=== PATIENT | female | born 1945 | race Caucasian/White ===

== ENCOUNTER 2016-12-05 13:08 | Inpatient (IN) | payer MEDICARE, OTHER ==
[~2016-12-05] VITALS: Ht 157.5 cm; Wt 74.7 kg
[~2016-12-05 13:08] MED LIST: ATEN-60 OR; CITA10TA59 OR; ESTR0.5T8 OR; LORA2TAB10 OR; NITR25CA OR; NOR5T PO; ROSU5TAB5; [UNRECOGNIZED DRUG - OTHER]
[2016-12-05] MEDS ORDERED: SODIUM CHLORIDE 0.9% 250 ML IV ONE (15:04)
[2016-12-05] MEDS ORDERED: MORPHINE SULFATE 4 MG/ML SYRG IV ONE (15:15)
[2016-12-05] MEDS ORDERED: ONDANSETRON HCL 4 MG/2 ML VIAL IV ONE (15:15)
[2016-12-05 15:30] LABS: Basophils # (auto) 0 uL; Basophils % (auto) 0.2 % (0.0-2.0); Eosinophils # (auto) 0 uL; Eosinophils % (auto) 0.2 % (0.0-7.0); Hematocrit 38.2 % (36.0-46.0); Hemoglobin 12.5 g/dL (12.2-16.2); Lymphocytes # (auto) 1.4 uL; Lymphocytes % (auto) 12.8 % (10.0-50.0); Mean Corpuscular Hemoglobin 31.4 pg (28.0-32.0); Mean Corpuscular Hgb Conc. 32.8 g/dL (32.0-36.0); Mean Corpuscular Volume 95.7 fL (80.0-100.0); Mean Platelet Volume 9.2 fL (7.4-10.4); Monocytes # (auto) 0.6 uL; Monocytes % (auto) 4.9 % (0.0-12.0); Neutrophils # (auto) 9.1 uL; Neutrophils % (auto) 81.9 % (37.0-80.0); Platelet Count (auto) 259 10^3/uL (140-450); Red Cell Distribution Width 12.3 % (11.6-16.0); White Blood Cell 11.2 10^3/uL (4.4-10.8)
[2016-12-05] MEDS ORDERED: NITROGLYCERIN 0.4 MG SL TAB SL PRN (15:30)
[2016-12-05 15:56] LABS: Albumin 4.2 g/dL (3.4-5.0); Bilirubin, Total 1.5 mg/dL (0.2-1.0); Calcium 9.3 mg/dL (8.5-10.1); Magnesium 2.2 mg/dL (1.6-2.6); Potassium 3.7 mmol/L (3.5-5.1); Total Protein 6.9 g/dL (6.4-8.2)
[2016-12-05 15:57] LABS: INR 1.11 (0.9-1.15); Partial Thromboplastin Time 25.2 sec (22.64-33.71); Prothrombin Time 11.4 sec (9.37-12.3)
[2016-12-05 18:42] VITALS: BP 124/80
[2016-12-05] MEDS ORDERED: HYDROcodone-ACET 5/325MG TAB PO PRN (19:15)
[2016-12-05] MEDS: MORPHINE SULF INJ 2 MG/ML SYRINGE 1ML IV PRN ×2 (19:29→20:37)
[2016-12-05] MEDS: SODIUM CHLORIDE 0.9% 1,000 ML IV SCH (19:40)
[2016-12-05] MEDS ORDERED: ONDANSETRON HCL 4 MG/2 ML VIAL IV PRN (19:45)
[2016-12-05] MEDS ORDERED: TEMAZEPAM 15 MG CAP PO PRN (21:00)
[2016-12-05] MEDS ORDERED: lamoTRIgine 100 MG TAB PO PRN (21:00)
[2016-12-05] MEDS ORDERED: PROMETHAZINE HCL 25 MG/ML 1ML IV PRN (21:00)
[2016-12-05] MEDS: EYE OP SCH (21:52)
[2016-12-05] MEDS: CYCLOSPORINE 0.05% OP SCH (21:52)
[2016-12-05] MEDS: ROSUVASTATIN CALCIUM 5 MG PO SCH (21:53)
[2016-12-05 22:00] VITALS: BP 124/80
[2016-12-06] MEDS: MORPHINE SULF INJ 2 MG/ML SYRINGE 1ML IV PRN ×2 (00:21→04:43)
[2016-12-06] MEDS: SODIUM CHLORIDE 0.9% 1,000 ML IV SCH ×2 (00:21→14:12)
[2016-12-06 01:11] LABS: Urine Bilirubin Negative (Negative); Urine Blood 1+ /uL (Negative); Urine Color Yellow (Yellow); Urine Glucose Normal (Normal); Urine Ketone 4+ (Negative); Urine Nitrite Negative (Negative); Urine RBC 1 /hpf (0 - 4); Urine Urobilinogen Normal (Negative)
[2016-12-06 05:00] VITALS: BP 109/56
[2016-12-06 06:34] LABS: Albumin 3.2 g/dL (3.4-5.0); Bilirubin, Total 1.5 mg/dL (0.2-1.0); Calcium 8.2 mg/dL (8.5-10.1); Total Protein 5.6 g/dL (6.4-8.2)
[2016-12-06] MEDS ORDERED: NEOMYCIN-BACITRACIN-POLYM 15GM TOP OINT TOP ONE (07:35)
[2016-12-06] MEDS ORDERED: BUPIVACAINE 0.25% INJ 50ML VIAL ONE (07:35)
[2016-12-06] MEDS ORDERED: LIDOCAINE 1% HCL (LOCAL ANESTH.) INJ 20ML MDV ONE (07:35)
[2016-12-06] MEDS ORDERED: METOCLOPRAMIDE HCL 5MG/ml INJ 2ml VIAL ONE (07:58)
[2016-12-06] MEDS ORDERED: ONDANSETRON HCL 4 MG/2 ML VIAL ONE ×2 (07:58→08:44)
[2016-12-06] MEDS ORDERED: LIDOCAINE HCL 2 %PF INJ 10ML AMP IJ ONE (07:58)
[2016-12-06] MEDS ORDERED: ceFAZolin 1GM/50ML D5W 100 ML IV ONE (07:58)
[2016-12-06] MEDS ORDERED: MIDAZOLAM HCL 1MG/1ML-2 ML VIAL ONE (07:58)
[2016-12-06] MEDS ORDERED: DEXAMETHASONE SOD PHOS 10MG/1ML VIAL INJ ONE (07:58)
[2016-12-06] MEDS ORDERED: PROPOFOL 10 MG/ML 20 ML IV ONE ×2 (07:59→09:12)
[2016-12-06 08:00] VITALS: BP 102/55
[2016-12-06] MEDS ORDERED: fentaNYL CITRATE 100 MCG/2 ML VL ONE (08:00)
[2016-12-06] MEDS ORDERED: MORPHINE SULF(PF) 0.5MG/ML 10ML VIAL ONE (08:00)
[2016-12-06] MEDS ORDERED: ePHEDrine SULFATE 50 MG/ML AMP ONE (08:26)
[2016-12-06] MEDS ORDERED: diphenhdrAMINE HCL 50 MG/1 ML VL IV PRN (10:00)
[2016-12-06] MEDS ORDERED: ePHEDrine SULFATE 50 MG/ML AMP IV PRN (10:00)
[2016-12-06] MEDS ORDERED: MIDAZOLAM HCL 1MG/1ML-2 ML VIAL IV PRN (10:00)
[2016-12-06] MEDS ORDERED: PROMETHAZINE HCL 25 MG/ML 1ML IM ONE (10:00)
[2016-12-06] MEDS ORDERED: LABETALOL HCL 5 MG/ML 4ML SYRINGE IV PRN (10:00)
[2016-12-06] MEDS ORDERED: METOCLOPRAMIDE HCL 5MG/ml INJ 2ml VIAL IV ONE (10:00)
[2016-12-06] MEDS ORDERED: KETOROLAC TROMETH 30 MG/ML 1ML VIAL IV PRN (10:00)
[2016-12-06] MEDS ORDERED: HYDROmorphone HCL 2 MG/ML VL IV PRN ×2 (10:00)
[2016-12-06] MEDS ORDERED: KETOROLAC TROMETH 30 MG/ML 1ML VIAL IV ONE (10:00)
[2016-12-06] MEDS ORDERED: NALOXONE HCL 0.4 MG/ML VIAL IV PRN ×2 (10:00)
[2016-12-06] MEDS ORDERED: hydrALAZINE HCL 20 MG/ML VL IV PRN (10:00)
[2016-12-06] MEDS: EYE OP SCH ×2 (10:00→22:00)
[2016-12-06] MEDS ORDERED: ONDANSETRON HCL 4 MG/2 ML VIAL IV ONE (10:00)
[2016-12-06] MEDS ORDERED: ATENOLOL 25 MG TAB PO SCH (10:00)
[2016-12-06] MEDS ORDERED: DEXAMETHASONE SOD PHOS 10MG/1ML VIAL INJ IV PRN (10:00)
[2016-12-06] MEDS: CYCLOSPORINE 0.05% OP SCH ×2 (10:00→22:00)
[2016-12-06] MEDS: ONDANSETRON HCL 4 MG/2 ML VIAL IV PRN ×3 (12:06→21:43)
[2016-12-06] MEDS: PANTOPRAZOLE 40 MG TAB PO SCH (12:07)
[2016-12-06] MEDS: CITALOPRAM HYDROBR 20 MG TAB PO SCH (12:07)
[2016-12-06 12:30] VITALS: BP 105/51
[2016-12-06] MEDS: ceFAZolin 1GM/50ML D5W 50 ML IV SCH ×2 (14:06→19:44)
[2016-12-06 17:00] VITALS: BP 103/55
[2016-12-06] MEDS: LORazepam 0.5 MG TAB PO PRN (19:43)
[2016-12-06 21:04] VITALS: BP 101/51
[2016-12-06] MEDS: ACYCLOVIR 400 MG TAB PO SCH (21:43)
[2016-12-06] MEDS: BIMATOPROST PO SCH (22:00)
[2016-12-06] MEDS: ROSUVASTATIN CALCIUM 5 MG PO SCH (22:00)
[2016-12-07] MEDS: ceFAZolin 1GM/50ML D5W 50 ML IV SCH ×4 (01:55→20:20)
[2016-12-07 05:00] VITALS: BP 98/52
[2016-12-07] MEDS: ACYCLOVIR 400 MG TAB PO SCH ×3 (06:15→20:54)
[2016-12-07] MEDS: MORPHINE SULF INJ 2 MG/ML SYRINGE 1ML IV PRN ×2 (08:34→20:09)
[2016-12-07 09:00] VITALS: BP 101/48
[2016-12-07] MEDS: ENOXAPARIN SOD 40 MG/0.4 ML SYRINGE SC SCH (09:56)
[2016-12-07] MEDS: PANTOPRAZOLE 40 MG TAB PO SCH (09:56)
[2016-12-07] MEDS: CITALOPRAM HYDROBR 20 MG TAB PO SCH (09:56)
[2016-12-07] MEDS: CYCLOSPORINE 0.05% OP SCH ×2 (10:00→20:59)
[2016-12-07] MEDS: EYE OP SCH ×2 (10:00→20:59)
[2016-12-07] MEDS: traMADol HCL 50 MG TAB PO PRN ×2 (10:03→16:05)
[2016-12-07 13:00] VITALS: BP 105/50
[2016-12-07 17:00] VITALS: BP 110/59
[2016-12-07] MEDS: ONDANSETRON HCL 4 MG/2 ML VIAL IV PRN (20:10)
[2016-12-07] MEDS: LORazepam 0.5 MG TAB PO PRN (20:54)
[2016-12-07] MEDS: BIMATOPROST PO SCH (20:55)
[2016-12-07] MEDS: ROSUVASTATIN CALCIUM 5 MG PO SCH (21:00)
[2016-12-07 22:00] VITALS: BP 111/56
[2016-12-08] MEDS: ceFAZolin 1GM/50ML D5W 50 ML IV SCH ×2 (01:57→07:45)
[2016-12-08] MEDS: MORPHINE SULF INJ 2 MG/ML SYRINGE 1ML IV PRN ×3 (04:39→21:01)
[2016-12-08] MEDS: ONDANSETRON HCL 4 MG/2 ML VIAL IV PRN (04:39)
[2016-12-08 05:00] VITALS: BP 98/48
[2016-12-08] MEDS: ACYCLOVIR 400 MG TAB PO SCH ×3 (05:21→21:12)
[2016-12-08 05:37] LABS: Basophils # (auto) 0 uL; Basophils % (auto) 0.2 % (0.0-2.0); Eosinophils # (auto) 0 uL; Eosinophils % (auto) 0.1 % (0.0-7.0); Hematocrit 27.4 % (36.0-46.0); Hemoglobin 8.7 g/dL (12.2-16.2); Lymphocytes # (auto) 1.5 uL; Lymphocytes % (auto) 13.3 % (10.0-50.0); Mean Corpuscular Hemoglobin 31.1 pg (28.0-32.0); Mean Corpuscular Hgb Conc. 31.9 g/dL (32.0-36.0); Mean Corpuscular Volume 97.6 fL (80.0-100.0); Monocytes # (auto) 0.8 uL; Monocytes % (auto) 7.6 % (0.0-12.0); Neutrophils # (auto) 8.7 uL; Neutrophils % (auto) 78.8 % (37.0-80.0); Platelet Count (auto) 176 10^3/uL (140-450); Red Cell Distribution Width 12.4 % (11.6-16.0)
[2016-12-08 09:00] VITALS: BP 93/50
[2016-12-08] MEDS: ENOXAPARIN SOD 40 MG/0.4 ML SYRINGE SC SCH (09:39)
[2016-12-08] MEDS: CITALOPRAM HYDROBR 20 MG TAB PO SCH (09:39)
[2016-12-08] MEDS: PANTOPRAZOLE 40 MG TAB PO SCH (09:39)
[2016-12-08] MEDS: CYCLOSPORINE 0.05% OP SCH ×2 (10:00→22:00)
[2016-12-08] MEDS: EYE OP SCH ×2 (10:00→22:00)
[2016-12-08] MEDS: LACTULOSE 20Gm/30ML SOLN PO PRN (12:17)
[2016-12-08] MEDS: traMADol HCL 50 MG TAB PO PRN ×2 (12:23→18:29)
[2016-12-08 13:00] VITALS: BP 106/64
[2016-12-08 17:07] VITALS: BP 122/66
[2016-12-08] MEDS: LORazepam 0.5 MG TAB PO PRN ×2 (21:01→21:12)
[2016-12-08 22:00] VITALS: BP 116/65
[2016-12-08] MEDS: BIMATOPROST PO SCH (22:18)
[2016-12-08] MEDS: ROSUVASTATIN CALCIUM 5 MG PO SCH (22:19)
[2016-12-09 05:00] VITALS: BP 116/66
[2016-12-09] MEDS: ACYCLOVIR 400 MG TAB PO SCH ×3 (05:16→21:51)
[2016-12-09 06:41] LABS: INR 1.05 (0.9-1.15); Prothrombin Time 10.8 sec (9.37-12.3)
[2016-12-09 06:57] LABS: Calcium 7.9 mg/dL (8.5-10.1); Magnesium 2.1 mg/dL (1.6-2.6); Potassium 3.4 mmol/L (3.5-5.1)
[2016-12-09 06:59] LABS: BUN/Creatinine Ratio 12.3
[2016-12-09 07:04] LABS: Basophils # (auto) 0 uL; Basophils % (auto) 0.3 % (0.0-2.0); DEFINITIVE VIEW TRANSMISSION; Eosinophils # (auto) 0.1 uL; Eosinophils % (auto) 1.4 % (0.0-7.0); Hematocrit 25.1 % (36.0-46.0); Hemoglobin 8.3 g/dL (12.2-16.2); Lymphocytes % (auto) 25.1 % (10.0-50.0); Mean Corpuscular Hemoglobin 32.1 pg (28.0-32.0); Mean Corpuscular Hgb Conc. 33.2 g/dL (32.0-36.0); Mean Corpuscular Volume 96.8 fL (80.0-100.0); Mean Platelet Volume 9.8 fL (7.4-10.4); Monocytes # (auto) 0.7 uL; Monocytes % (auto) 8.3 % (0.0-12.0); Neutrophils # (auto) 5.3 uL; Neutrophils % (auto) 64.9 % (37.0-80.0); Platelet Count (auto) 180 10^3/uL (140-450); Red Cell Distribution Width 12.5 % (11.6-16.0); White Blood Cell 8.1 10^3/uL (4.4-10.8)
[2016-12-09] MEDS: LACTULOSE 20Gm/30ML SOLN PO PRN (08:48)
[2016-12-09] MEDS: PANTOPRAZOLE 40 MG TAB PO SCH (09:34)
[2016-12-09] MEDS: CITALOPRAM HYDROBR 20 MG TAB PO SCH (09:34)
[2016-12-09] MEDS: EYE OP SCH ×2 (09:35→21:50)
[2016-12-09] MEDS: ENOXAPARIN SOD 40 MG/0.4 ML SYRINGE SC SCH (09:35)
[2016-12-09] MEDS: CYCLOSPORINE 0.05% OP SCH ×2 (09:35→21:50)
[2016-12-09 09:36] VITALS: BP 100/55
[2016-12-09 12:48] VITALS: BP 117/64
[2016-12-09 13:13] VITALS: BP 117/64
[2016-12-09] MEDS: traMADol HCL 50 MG TAB PO PRN (13:50)
[2016-12-09 17:00] VITALS: BP 114/61
[2016-12-09] MEDS: MORPHINE SULF INJ 2 MG/ML SYRINGE 1ML IV PRN ×2 (17:48→21:52)
[2016-12-09 21:34] VITALS: BP 108/57
[2016-12-09] MEDS: BIMATOPROST PO SCH (21:51)
[2016-12-09] MEDS: ROSUVASTATIN CALCIUM 5 MG PO SCH (21:51)
[2016-12-09] MEDS: LORazepam 0.5 MG TAB PO PRN (22:08)
[2016-12-10 04:30] VITALS: BP 125/62
[2016-12-10] MEDS: ACYCLOVIR 400 MG TAB PO SCH ×3 (05:42→22:08)
[2016-12-10 06:47] LABS: Hematocrit 26.4 % (36.0-46.0); Hemoglobin 8.8 g/dL (12.2-16.2)
[2016-12-10] MEDS: EYE OP SCH ×2 (10:00→22:00)
[2016-12-10] MEDS: CYCLOSPORINE 0.05% OP SCH ×2 (10:00→22:00)
[2016-12-10 10:11] VITALS: BP 115/64
[2016-12-10] MEDS: PANTOPRAZOLE 40 MG TAB PO SCH (11:56)
[2016-12-10] MEDS: ENOXAPARIN SOD 40 MG/0.4 ML SYRINGE SC SCH (11:56)
[2016-12-10] MEDS: CITALOPRAM HYDROBR 20 MG TAB PO SCH (11:56)
[2016-12-10 14:01] VITALS: BP 122/68
[2016-12-10] MEDS ORDERED: HYDROcodone-ACET 5/325MG TAB PO PRN (16:15)
[2016-12-10] MEDS: ACETAMINOPHEN 500 MG TAB PO PRN (16:40)
[2016-12-10 17:04] VITALS: BP 122/71
[2016-12-10 22:00] VITALS: BP 118/66
[2016-12-10] MEDS: ROSUVASTATIN CALCIUM 5 MG PO SCH (22:00)
[2016-12-10] MEDS: BIMATOPROST PO SCH (22:07)
[2016-12-10] MEDS: LORazepam 0.5 MG TAB PO PRN (22:08)
[2016-12-11 04:59] VITALS: BP 128/70
[2016-12-11 05:34] LABS: Hematocrit 27.4 % (36.0-46.0); Hemoglobin 9.1 g/dL (12.2-16.2)
[2016-12-11] MEDS: ACYCLOVIR 400 MG TAB PO SCH ×2 (05:50→13:57)
[2016-12-11 06:28] LABS: BUN/Creatinine Ratio 10.6; Calcium 8.3 mg/dL (8.5-10.1); Potassium 3.2 mmol/L (3.5-5.1)
[2016-12-11] MEDS: ACETAMINOPHEN 500 MG TAB PO PRN (08:42)
[2016-12-11 09:00] VITALS: BP 124/68
[2016-12-11] MEDS: EYE OP SCH (10:00)
[2016-12-11] MEDS: CYCLOSPORINE 0.05% OP SCH (10:00)
[2016-12-11] MEDS: PANTOPRAZOLE 40 MG TAB PO SCH (10:55)
[2016-12-11] MEDS: CITALOPRAM HYDROBR 20 MG TAB PO SCH (10:55)
[2016-12-11] MEDS: ENOXAPARIN SOD 40 MG/0.4 ML SYRINGE SC SCH (10:56)
[2016-12-11] MEDS: traMADol HCL 50 MG TAB PO PRN (11:28)
[2016-12-11] MEDS ORDERED: POTASSIUM CHL 20 Meq TABLET PO ONE (12:45)
[2016-12-11 13:00] VITALS: BP 136/76
[2016-12-11 17:00] VITALS: BP 112/71
== END 2016-12-11 16:50 | disposition home or self-care (01) | DRG 493 ==
LOC: EDBD 13:08 → ER 13:21 → TELE 13:22 → EDUNIT# 13:22 → TELE-WESTW 18:02
PROVIDERS: ADMIT Internal Medicine; ATTEND Family Medicine
PROC: 0QSH04Z Reposition Left Tibia with Internal Fixation Device, Open Approach (ICD-10-PCS; principal; 2016-12-05)
DX: S82.142A Displaced bicondylar fracture of left tibia, initial encounter for closed fracture (principal); M80.062A Age-related osteoporosis with current pathological fracture, left lower leg, initial encounter for fracture; S82.852A Displaced trimalleolar fracture of left lower leg, initial encounter for closed fracture; E78.5 Hyperlipidemia, unspecified; F32.9 Major depressive disorder, single episode, unspecified; F41.9 Anxiety disorder, unspecified; I34.1 Nonrheumatic mitral (valve) prolapse; W19.XXXA Unspecified fall, initial encounter; Z82.0 Family history of epilepsy and other diseases of the nervous system; Z82.49 Family history of ischemic heart disease and other diseases of the circulatory system; Z88.5 Allergy status to narcotic agent; Z79.899 Other long term (current) drug therapy; Z80.9 Family history of malignant neoplasm, unspecified; Z98.51 Tubal ligation status; Y93.89 Activity, other specified; Y92.89 Other specified places as the place of occurrence of the external cause; Z90.710 Acquired absence of both cervix and uterus; Z87.440 Personal history of urinary (tract) infections; Z98.890 Other specified postprocedural states
CPT/HCPCS: 36415; 71010; 73560; 73600; 73700; 74176; 76001; 80048; 80053; 81001; 83690; 83735; 84132; 85014; 85018; 85025; 85049; 85610; 85730; 87081; 93005; 93306; 96361; 96374; 96375; 97110; 97116; 97530; C1713; J0690; J1100; J2001; J2250; J2405; J2704; J3490

== ENCOUNTER → 2017-01-27 | Outpatient (CLI) | payer MEDICARE, OTHER | END | disposition home or self-care (01) | LOC: LAB 12:34 | PROVIDERS: ATTEND Internal Medicine | DX: R30.0 Dysuria (principal) | CPT/HCPCS: 87086 ==

== ENCOUNTER 2017-03-04 18:03 | Emergency (ER) | payer MEDICARE, OTHER ==
[~2017-03-04] VITALS: Ht 157.5 cm; Wt 55.3 kg
[~2017-03-04 18:03] MED LIST changes: +BIMA0.01 EACHEYE; +CYCL0.05 EACHEYE; +DRON2.5C PO; -ESTR0.5T8 OR; +MULT1TAB95 PO; -NITR25CA OR; +PANT40TA2 PO; +SUC1LQ PO
[2017-03-04 22:09] LABS: Urine Bilirubin Negative (Negative); Urine Color Yellow (Yellow); Urine Glucose Normal (Normal); Urine Mucus FEW (None Seen); Urine Nitrite Negative (Negative); Urine RBC 1 /hpf (0 - 4); Urine Squamous Epithelial Cell FEW /hpf (<5); Urine Urobilinogen Normal (Negative); Urine pH 5.5 (5.0-8.0)
[2017-03-04 22:23] LABS: Urine Blood 1+ /uL (Negative); Urine Ketone 2+ (Negative)
[2017-03-05 01:13] LABS: Albumin 3.8 g/dL (3.4-5.0); BUN/Creatinine Ratio 8.1; Potassium 3.9 mmol/L (3.5-5.1)
[2017-03-05 01:16] LABS: Bilirubin, Total 0.5 mg/dL (0.2-1.0); Total Protein 6.6 g/dL (6.4-8.2)
[2017-03-05 01:20] LABS: Basophils # (auto) 0 uL; Basophils % (auto) 0.4 % (0.0-2.0); Eosinophils # (auto) 0.1 uL; Eosinophils % (auto) 1.1 % (0.0-7.0); Hematocrit 36.7 % (36.0-46.0); Lymphocytes # (auto) 2.3 uL; Lymphocytes % (auto) 30.7 % (10.0-50.0); Mean Corpuscular Hemoglobin 31.3 pg (28.0-32.0); Mean Corpuscular Hgb Conc. 32.7 g/dL (32.0-36.0); Mean Corpuscular Volume 95.7 fL (80.0-100.0); Mean Platelet Volume 10.7 fL (7.4-10.4); Monocytes # (auto) 0.6 uL; Monocytes % (auto) 8.2 % (0.0-12.0); Neutrophils # (auto) 4.4 uL; Neutrophils % (auto) 59.6 % (37.0-80.0); Platelet Count (auto) 258 10^3/uL (140-450); Red Cell Distribution Width 14.4 % (11.6-16.0); White Blood Cell 7.4 10^3/uL (4.4-10.8)
[2017-03-05 02:29] VITALS: BP 129/69
== END 2017-03-05 02:42 | disposition home or self-care (01) ==
LOC: ER 18:03
DX: N39.0 Urinary tract infection, site not specified (principal); Z88.6 Allergy status to analgesic agent; Z88.8 Allergy status to other drugs, medicaments and biological substances; E78.5 Hyperlipidemia, unspecified; Z87.440 Personal history of urinary (tract) infections; Z90.710 Acquired absence of both cervix and uterus; Z90.49 Acquired absence of other specified parts of digestive tract; Z98.51 Tubal ligation status
CPT/HCPCS: 36415; 80053; 81001; 85025

== ENCOUNTER 2017-03-06 19:25 | Emergency (ER) | payer MEDICARE, OTHER ==
[~2017-03-06] VITALS: Ht 157.5 cm; Wt 55.3 kg
[2017-03-07 03:25] VITALS: BP 148/66
[2017-03-07 04:17] LABS: Basophils # (auto) 0.1 uL; Basophils % (auto) 0.7 % (0.0-2.0); Eosinophils # (auto) 0.1 uL; Eosinophils % (auto) 1.6 % (0.0-7.0); Hematocrit 38.6 % (36.0-46.0); Hemoglobin 12.8 g/dL (12.2-16.2); Lymphocytes % (auto) 25.5 % (10.0-50.0); Mean Corpuscular Hemoglobin 31.3 pg (28.0-32.0); Mean Corpuscular Hgb Conc. 33.1 g/dL (32.0-36.0); Mean Corpuscular Volume 94.6 fL (80.0-100.0); Mean Platelet Volume 10.1 fL (7.4-10.4); Monocytes # (auto) 0.6 uL; Neutrophils # (auto) 5.2 uL; Neutrophils % (auto) 65.2 % (37.0-80.0); Platelet Count (auto) 278 10^3/uL (140-450); Red Cell Distribution Width 14.3 % (11.6-16.0); White Blood Cell 7.9 10^3/uL (4.4-10.8)
[2017-03-07 04:32] LABS: Albumin 4.2 g/dL (3.4-5.0); BUN/Creatinine Ratio 6.8; Calcium 8.9 mg/dL (8.5-10.1); Potassium 3.2 mmol/L (3.5-5.1)
[2017-03-07 04:35] LABS: Bilirubin, Total 0.5 mg/dL (0.2-1.0); Total Protein 7.1 g/dL (6.4-8.2)
[2017-03-07 05:09] LABS: Urine Bilirubin Negative (Negative); Urine Blood TRACE /uL (Negative); Urine Color Yellow (Yellow); Urine Glucose Normal (Normal); Urine Mucus FEW (None Seen); Urine Nitrite Negative (Negative); Urine RBC 11 /hpf (0 - 4); Urine Squamous Epithelial Cell FEW /hpf (<5); Urine Urobilinogen Normal (Negative); Urine pH 5.5 (5.0-8.0)
[2017-03-07 05:11] LABS: Urine Ketone 2+ (Negative)
== END 2017-03-07 05:58 | disposition home or self-care (01) ==
LOC: ER 19:29
DX: R39.198 Other difficulties with micturition (principal); E78.5 Hyperlipidemia, unspecified; Z90.710 Acquired absence of both cervix and uterus; Z88.6 Allergy status to analgesic agent; Z88.8 Allergy status to other drugs, medicaments and biological substances
CPT/HCPCS: 36415; 80053; 81001; 85025

== ENCOUNTER → 2017-03-12 | Outpatient (CLI) | payer MEDICARE, OTHER | END | disposition home or self-care (01) | LOC: LAB 09:37 | PROVIDERS: ATTEND Internal Medicine | DX: R63.4 Abnormal weight loss (principal); E03.9 Hypothyroidism, unspecified; E11.9 Type 2 diabetes mellitus without complications | CPT/HCPCS: 36415; 82306; 83036; 84132; 84439; 84443 ==

== ENCOUNTER → 2017-03-16 | Outpatient (CLI) | payer MEDICARE, OTHER ==
[2017-03-16 16:17] LABS: Amylase 136 U/L (25-115)
== END ==
LOC: LAB 14:51
PROVIDERS: ATTEND Internal Medicine
DX: K85.90 Acute pancreatitis without necrosis or infection, unspecified (principal); R19.7 Diarrhea, unspecified
CPT/HCPCS: 36415; 82150; 83690

== ENCOUNTER → 2017-03-27 | Outpatient (CLI) | payer MEDICARE, OTHER | END | disposition home or self-care (01) | LOC: LAB 15:28 | PROVIDERS: ATTEND Internal Medicine Gastroenterology | DX: R74.8 Abnormal levels of other serum enzymes (principal) | CPT/HCPCS: 82784; 83516; 86255 ==

== ENCOUNTER → 2017-04-30 | Outpatient (CLI) | payer MEDICARE, OTHER ==
[~2017-04-30] VITALS: Ht 157.5 cm; Wt 53.1 kg
[~2017-04-30] MED LIST changes: +ADENOSINE 45 MG in GIVE UN-DILUTED 0 ML IV ONE; +ADENOSINE IV ONE; +GIVE UN DILUTED IV ONE; +HYDR-4663 PO; -NOR5T PO
== END | disposition home or self-care (01) ==
LOC: XY 08:14
PROVIDERS: ATTEND Internal Medicine Cardiovascular Disease
DX: I20.8 Other forms of angina pectoris (principal)
CPT/HCPCS: 78452; 93017; A9500; J0153

== ENCOUNTER → 2017-05-11 | Outpatient (CLI) | payer MEDICARE, OTHER ==
[~2017-05-11] MED LIST changes: -ADENOSINE 45 MG in GIVE UN-DILUTED 0 ML IV ONE; -ADENOSINE IV ONE; -GIVE UN DILUTED IV ONE
== END | disposition home or self-care (01) ==
LOC: LAB 13:49
PROVIDERS: ATTEND Internal Medicine
DX: R63.4 Abnormal weight loss (principal)
CPT/HCPCS: 36415; 82565; 84520

== ENCOUNTER → 2017-05-26 | Outpatient (CLI) | payer MEDICARE, OTHER ==
[2017-05-26 14:52] LABS: Basophils # (auto) 0 uL; Basophils % (auto) 0.5 % (0.0-2.0); CONDITION Y; Eosinophils # (auto) 0.1 uL; Hematocrit 38.5 % (36.0-46.0); Lymphocytes # (auto) 1.7 uL; Lymphocytes % (auto) 20.4 % (10.0-50.0); Mean Corpuscular Hemoglobin 32.3 pg (28.0-32.0); Mean Corpuscular Hgb Conc. 33.8 g/dL (32.0-36.0); Mean Corpuscular Volume 95.4 fL (80.0-100.0); Mean Platelet Volume 8.6 fL (7.4-10.4); Monocytes # (auto) 0.5 uL; Monocytes % (auto) 5.8 % (0.0-12.0); Neutrophils # (auto) 6.1 uL; Neutrophils % (auto) 72.3 % (37.0-80.0); Platelet Count (auto) 297 10^3/uL (140-450); White Blood Cell 8.5 10^3/uL (4.4-10.8)
[2017-05-26 15:11] LABS: Albumin 3.7 g/dL (3.4-5.0); BUN/Creatinine Ratio 24.7; Bilirubin, Total 0.7 mg/dL (0.2-1.0); Calcium 9.1 mg/dL (8.5-10.1); Total Protein 6.8 g/dL (6.4-8.2)
== END | disposition home or self-care (01) ==
LOC: LAB 14:35
DX: M06.9 Rheumatoid arthritis, unspecified (principal); M25.50 Pain in unspecified joint; D64.9 Anemia, unspecified; I10 Essential (primary) hypertension
CPT/HCPCS: 36415; 80053; 85025; 85652; 86141

== ENCOUNTER → 2017-05-29 | Outpatient (CLI) | payer MEDICARE, OTHER | END | disposition home or self-care (01) | LOC: LAB 10:36 | DX: C43.9 Malignant melanoma of skin, unspecified (principal) | CPT/HCPCS: 84155; 84156; 84165; 84166 ==

== ENCOUNTER → 2017-06-05 | Outpatient (CLI) | payer MEDICARE, OTHER | END | disposition home or self-care (01) | LOC: LAB 15:25 | PROVIDERS: ATTEND Internal Medicine Gastroenterology | DX: A04.7 Enterocolitis due to Clostridium difficile (principal); R63.8 Other symptoms and signs concerning food and fluid intake; R74.8 Abnormal levels of other serum enzymes | CPT/HCPCS: 82705 ==

== ENCOUNTER → 2017-06-17 | Outpatient (CLI) | payer MEDICARE, OTHER ==
[2017-06-17 13:02] LABS: Albumin 3.8 g/dL (3.4-5.0); BUN/Creatinine Ratio 16.2; Bilirubin, Total 0.9 mg/dL (0.2-1.0); Calcium 8.7 mg/dL (8.5-10.1); Potassium 4.1 mmol/L (3.5-5.1)
== END | disposition home or self-care (01) ==
LOC: LAB 12:00
PROVIDERS: ATTEND Internal Medicine
DX: R10.13 Epigastric pain (principal)
CPT/HCPCS: 36415; 80053; 82150; 83690

== ENCOUNTER → 2017-06-29 | Outpatient (CLI) | payer MEDICARE, OTHER | END | disposition home or self-care (01) | LOC: LAB 12:31 | PROVIDERS: ATTEND Internal Medicine Gastroenterology | DX: R10.9 Unspecified abdominal pain (principal); R63.4 Abnormal weight loss | CPT/HCPCS: 36415; 82565; 84520 ==

== ENCOUNTER → 2017-07-09 | Outpatient (CLI) | payer MEDICARE, OTHER ==
[~2017-07-09] MED LIST changes: -ATEN-60 OR; -DRON2.5C PO; -HYDR-4663 PO; +METO25TA62 PO; -ROSU5TAB5
== END | disposition home or self-care (01) ==
LOC: LAB 15:28
PROVIDERS: ATTEND Urology
DX: N39.0 Urinary tract infection, site not specified (principal)
CPT/HCPCS: 87086

== ENCOUNTER → 2017-08-31 | Outpatient (CLI) | payer MEDICARE, OTHER ==
[2017-08-31 15:13] LABS: Basophils # (auto) 0.1 uL; Eosinophils # (auto) 0.1 uL; Eosinophils % (auto) 1.9 % (0.0-7.0); Hematocrit 38.9 % (36.0-46.0); Hemoglobin 13.3 g/dL (12.2-16.2); Lymphocytes # (auto) 2.7 uL; Lymphocytes % (auto) 36.6 % (10.0-50.0); Mean Corpuscular Hemoglobin 32.9 pg (28.0-32.0); Mean Corpuscular Hgb Conc. 34.1 g/dL (32.0-36.0); Mean Corpuscular Volume 96.4 fL (80.0-100.0); Mean Platelet Volume 8.7 fL (6.9-10.8); Monocytes # (auto) 0.5 uL; Monocytes % (auto) 6.9 % (0.0-12.0); Neutrophils % (auto) 53.6 % (37.0-80.0); Platelet Count (auto) 219 10^3/uL (140-450); Red Cell Distribution Width 12.7 % (11.8-14.3); White Blood Cell 7.5 10^3/uL (4.4-10.8)
[2017-08-31 15:29] LABS: Albumin 4.2 g/dL (3.4-5.0); BUN/Creatinine Ratio 17.3; Bilirubin, Total 1.2 mg/dL (0.2-1.0); Calcium 8.4 mg/dL (8.5-10.1); Potassium 4.2 mmol/L (3.5-5.1); Total Protein 7.2 g/dL (6.4-8.2)
== END | disposition home or self-care (01) ==
LOC: LAB 14:48
DX: I10 Essential (primary) hypertension (principal); E78.00 Pure hypercholesterolemia, unspecified; M81.0 Age-related osteoporosis without current pathological fracture; M25.50 Pain in unspecified joint; D64.9 Anemia, unspecified
CPT/HCPCS: 36415; 80053; 85025; 85652; 86141

== ENCOUNTER 2017-11-23 12:05 | Emergency (ER) | payer MEDICARE, OTHER ==
[~2017-11-23] VITALS: Ht 157.5 cm; Wt 62.1 kg
[~2017-11-23 12:05] MED LIST changes: +ACYC800T PO; +ATEN-60 PO; +CYCL0.05 OP; +LORA-653 PO; +ROSU10TA16 PO; -SUC1LQ PO; +SUCR1SUS10 PO
[2017-11-23 13:11] VITALS: BP 136/61
[2018-01-01] MEDS ORDERED: LAMO25TA2 PO (10:15)
[2018-01-01] MEDS ORDERED: ATOR20TA PO (10:15)
== END 2017-11-23 14:25 | disposition home or self-care (01) ==
LOC: ER 12:05 → EDUNIT# 12:05 → ER 14:25
DX: J06.9 Acute upper respiratory infection, unspecified (principal); E78.5 Hyperlipidemia, unspecified; Z98.51 Tubal ligation status; Z90.49 Acquired absence of other specified parts of digestive tract; Z87.440 Personal history of urinary (tract) infections
CPT/HCPCS: 71046

== ENCOUNTER 2018-01-05 11:16 | Day surgery (SDC) | payer MEDICARE, OTHER ==
[2018-01-01 10:45] LABS: Urine WBC None Seen /hpf (0 - 5)
[2018-01-01 11:25] LABS: Urine Bacteria NONE SEEN /hpf (None Seen); Urine Blood TRACE /uL (Negative); Urine Specific Gravity 1.016 (1.001-1.035)
[2018-01-01 11:27] LABS: Albumin 4.3 g/dL (3.4-5.0); BUN/Creatinine Ratio 21.6; Calcium 9.2 mg/dL (8.5-10.1)
[2018-01-01 11:28] LABS: Basophils # (auto) 0.1 uL; Eosinophils # (auto) 0.1 uL; Eosinophils % (auto) 1.7 % (0.0-7.0); Hematocrit 41.4 % (36.0-46.0); Hemoglobin 13.8 g/dL (12.2-16.2); Lymphocytes # (auto) 2.5 uL; Lymphocytes % (auto) 31.6 % (10.0-50.0); Mean Corpuscular Hemoglobin 32.4 pg (28.0-32.0); Mean Corpuscular Hgb Conc. 33.3 g/dL (32.0-36.0); Mean Corpuscular Volume 97.3 fL (80.0-100.0); Monocytes # (auto) 0.4 uL; Monocytes % (auto) 5.7 % (0.0-12.0); Neutrophils # (auto) 4.7 uL; Nucleated Red Blood Cells % 0.1 %; Platelet Count (auto) 233 10^3/uL (140-450); Red Blood Cells 4.26 10^6/uL (4.0-5.20); Red Cell Distribution Width 13.7 % (11.8-14.3); White Blood Cell 7.8 10^3/uL (4.4-10.8)
[2018-01-01 11:30] LABS: Bilirubin, Total 0.9 mg/dL (0.2-1.0); Total Protein 7.3 g/dL (6.4-8.2)
[2018-01-01 11:41] LABS: INR 0.95 (0.9-1.15); Partial Thromboplastin Time 24.6 sec (22.64-33.71); Prothrombin Time 10.4 sec (9.37-12.3)
[~2018-01-05] VITALS: Ht 157.5 cm; Wt 60.3 kg
[~2018-01-05 11:16] MED LIST changes: +ATOR20TA PO; +LAMO25TA2 PO; -[UNRECOGNIZED DRUG - OTHER]
[2018-01-05] MEDS ORDERED: ceFAZolin 1GM/50ML 50 ML IV ONE (12:12)
[2018-01-05] MEDS ORDERED: DEXAMETHASONE SOD PHOS 10MG/1ML VIAL INJ ONE (13:41)
[2018-01-05] MEDS ORDERED: MIDAZOLAM HCL 1MG/1ML-2 ML VIAL ONE (13:41)
[2018-01-05] MEDS ORDERED: fentaNYL CITRATE 100 MCG/2 ML VL ONE (13:41)
[2018-01-05] MEDS ORDERED: LABETALOL HCL 5 MG/ML 4ML SYRINGE IV PRN (14:00)
[2018-01-05] MEDS ORDERED: ePHEDrine SULFATE 50 MG/ML AMP IV PRN (14:00)
[2018-01-05] MEDS ORDERED: KETOROLAC TROMETH 30 MG/ML 1ML VIAL IV ONE (14:00)
[2018-01-05] MEDS ORDERED: hydrALAZINE HCL 20 MG/ML VL IV PRN (14:00)
[2018-01-05] MEDS ORDERED: MIDAZOLAM HCL 1MG/1ML-2 ML VIAL IV PRN (14:00)
[2018-01-05] MEDS ORDERED: HYDROmorphone HCL 2 MG/ML VL IV PRN (14:00)
[2018-01-05] MEDS ORDERED: ONDANSETRON HCL 4 MG/2 ML VIAL IV ONE (14:00)
[2018-01-05] MEDS ORDERED: MORPHINE SULFATE 4 MG/ML SYR/VIAL IV PRN (14:00)
[2018-01-05] MEDS ORDERED: MORPHINE SULFATE 4 MG/ML SYR/VIAL IV ONE (14:00)
[2018-01-05] MEDS ORDERED: PROPOFOL 10 MG/ML 20 ML IV ONE (14:13)
[2018-01-05 16:01] VITALS: BP 123/76
== END 2018-01-05 16:21 | disposition home or self-care (01) ==
LOC: SUR 11:16
PROVIDERS: ATTEND Urology
DX: N36.42 Intrinsic sphincter deficiency (ISD) (principal); N39.3 Stress incontinence (female) (male); F41.9 Anxiety disorder, unspecified; F32.9 Major depressive disorder, single episode, unspecified; I34.1 Nonrheumatic mitral (valve) prolapse; I10 Essential (primary) hypertension; I49.9 Cardiac arrhythmia, unspecified; H40.9 Unspecified glaucoma; Z90.710 Acquired absence of both cervix and uterus; E66.9 Obesity, unspecified
CPT/HCPCS: 36415; 51715; 74018; 76000; 80053; 81001; 85025; 85610; 85730; J0690; J1100; J2250; J2704; J3010; L8606

== ENCOUNTER → 2018-01-21 | Outpatient (CLI) | payer MEDICARE, OTHER | END | disposition home or self-care (01) | LOC: LAB 14:11 → MERGE 14:11 | PROVIDERS: ATTEND Urology | DX: N34.3 Urethral syndrome, unspecified (principal) | CPT/HCPCS: 87086 ==

== ENCOUNTER 2018-02-05 11:45 | Emergency (ER) | payer MEDICARE, OTHER ==
[~2018-02-05] VITALS: Ht 157.5 cm; Wt 59.4 kg
[2018-02-05 12:35] LABS: Basophils # (auto) 0.1 uL; Basophils % (auto) 0.8 % (0.0-2.0); Eosinophils # (auto) 0 uL; Eosinophils % (auto) 0.1 % (0.0-7.0); Hematocrit 40.1 % (36.0-46.0); Hemoglobin 13.2 g/dL (12.2-16.2); Lymphocytes # (auto) 1.9 uL; Lymphocytes % (auto) 18.1 % (10.0-50.0); Mean Corpuscular Hemoglobin 31.7 pg (28.0-32.0); Mean Corpuscular Volume 96.2 fL (80.0-100.0); Monocytes # (auto) 0.6 uL; Monocytes % (auto) 6.1 % (0.0-12.0); Neutrophils # (auto) 7.9 uL; Neutrophils % (auto) 74.9 % (37.0-80.0); Nucleated Red Blood Cells % 0.1 %; Platelet Count (auto) 297 10^3/uL (140-450); Red Blood Cells 4.17 10^6/uL (4.0-5.20); Red Cell Distribution Width 13.5 % (11.8-14.3); White Blood Cell 10.5 10^3/uL (4.4-10.8)
[2018-02-05 13:06] LABS: Anion Gap 5 (5-15); Blood Urea Nitrogen 12 mg/dL (7-18); Calcium 9.1 mg/dL (8.5-10.1); Carbon Dioxide 26 mmol/L (21-32); Chloride 103 mmol/L (98-107); Glucose 91 mg/dL (74-106); Magnesium 2.3 mg/dL (1.6-2.6); Potassium 4.2 mmol/L (3.5-5.1); Sodium 134 mmol/L (136-145)
[2018-02-05 13:07] LABS: Alanine Aminotransferase 20 U/L (13-56); Aspartate Aminotransferase 19 U/L (15-37); BUN/Creatinine Ratio 15.4; GFR African American 94 mL/min; GFR Non-African American 78 mL/min
[2018-02-05 13:13] LABS: Alkaline Phosphatase 52 U/L (45-117); Total Protein 6.9 g/dL (6.4-8.2)
[2018-02-05 13:26] LABS: Urine Bacteria NONE SEEN /hpf (None Seen); Urine Blood Negative /uL (Negative); Urine Specific Gravity 1.007 (1.001-1.035); Urine WBC <1 /hpf (0 - 5)
[2018-02-05] MEDS ORDERED: methylPREDNISolone SOD SUCC 125 MG/2 ML VL IV ONE (13:30)
[2018-02-05] MEDS ORDERED: IPRATROPIUM BROM 0.5 MG/2.5ML INH SOL HHN ONE (13:30)
[2018-02-05] MEDS ORDERED: ALBUTEROL SULF 2.5 MG/0.5ML(0.5%) NEB SOLN HHN ONE (13:30)
[2018-02-05 13:45] VITALS: BP 125/76
== END 2018-02-05 15:49 | disposition home or self-care (01) ==
LOC: ER 11:45 → MERGE 11:45 → ER 13:16
DX: J20.9 Acute bronchitis, unspecified (principal); E78.5 Hyperlipidemia, unspecified; R06.02 Shortness of breath; Z90.710 Acquired absence of both cervix and uterus; Z87.442 Personal history of urinary calculi; Z98.51 Tubal ligation status
CPT/HCPCS: 36415; 71046; 80053; 81001; 83735; 83880; 84484; 85025; 93005; 94640; 94761; 96374; 99285; J2930

== ENCOUNTER → 2018-02-15 | Outpatient (CLI) | payer MEDICARE, OTHER ==
[~2018-02-15] MED LIST changes: -ACYC800T PO; -ATEN-60 PO; -CYCL0.05 OP; -LORA-653 PO; -ROSU10TA16 PO
== END | disposition home or self-care (01) ==
LOC: LAB 12:59
PROVIDERS: ATTEND Internal Medicine Gastroenterology
DX: R19.7 Diarrhea, unspecified (principal); I10 Essential (primary) hypertension
CPT/HCPCS: 87045; 87493; 87899

== ENCOUNTER → 2018-05-04 | Outpatient (CLI) | payer MEDICARE, OTHER ==
[~2018-05-04] MED LIST changes: +ACYC800T PO; +ATEN-60 PO; +CYCL0.05 OP; +LORA-653 PO; +ROSU10TA16 PO
[2018-05-04 12:33] LABS: Basophils # (auto) 0.1 uL; Basophils % (auto) 0.9 % (0.0-2.0); Eosinophils # (auto) 0.1 uL; Eosinophils % (auto) 2.3 % (0.0-7.0); Hematocrit 40.5 % (36.0-46.0); Hemoglobin 13.3 g/dL (12.2-16.2); Lymphocytes # (auto) 1.9 uL; Lymphocytes % (auto) 31.4 % (10.0-50.0); Mean Corpuscular Hemoglobin 31.9 pg (28.0-32.0); Mean Corpuscular Hgb Conc. 32.8 g/dL (32.0-36.0); Mean Corpuscular Volume 97.4 fL (80.0-100.0); Monocytes # (auto) 0.3 uL; Monocytes % (auto) 5.7 % (0.0-12.0); Neutrophils # (auto) 3.5 uL; Neutrophils % (auto) 59.7 % (37.0-80.0); Platelet Count (auto) 233 10^3/uL (140-450); Red Blood Cells 4.15 10^6/uL (4.0-5.20); Red Cell Distribution Width 12.7 % (11.8-14.3); White Blood Cell 5.9 10^3/uL (4.4-10.8)
[2018-05-04 12:44] LABS: Urine Bacteria NONE SEEN /hpf (None Seen); Urine Blood Negative /uL (Negative); Urine Specific Gravity 1.007 (1.001-1.035); Urine WBC <1 /hpf (0 - 5)
[2018-05-04 13:04] LABS: BUN/Creatinine Ratio 11.5; Bilirubin, Total 1.2 mg/dL (0.2-1.0); Calcium 9.4 mg/dL (8.5-10.1); Potassium 4.1 mmol/L (3.5-5.1); Total Protein 7.1 g/dL (6.4-8.2)
== END | disposition home or self-care (01) ==
LOC: LAB 11:46
PROVIDERS: ATTEND Internal Medicine
DX: F32.9 Major depressive disorder, single episode, unspecified (principal); M81.0 Age-related osteoporosis without current pathological fracture; I10 Essential (primary) hypertension; M06.9 Rheumatoid arthritis, unspecified; Z86.79 Personal history of other diseases of the circulatory system
CPT/HCPCS: 36415; 80053; 80061; 81001; 82043; 82306; 84439; 84443; 85025; 85652

== ENCOUNTER 2018-08-01 13:15 | Emergency (ER) | payer MEDICARE, OTHER ==
[~2018-08-01] VITALS: Ht 154.9 cm; Wt 61.2 kg
[2018-08-01 14:10] LABS: Urine Bacteria NONE SEEN /hpf (None Seen); Urine Blood Negative /uL (Negative); Urine Specific Gravity 1.002 (1.001-1.035); Urine WBC <1 /hpf (0 - 5)
[2018-08-01 15:14] LABS: Basophils # (auto) 0.1 uL; Basophils % (auto) 0.7 % (0.0-2.0); Eosinophils # (auto) 0.1 uL; Eosinophils % (auto) 1.5 % (0.0-7.0); Hematocrit 41.8 % (36.0-46.0); Hemoglobin 13.9 g/dL (12.2-16.2); Lymphocytes % (auto) 22.9 % (10.0-50.0); Mean Corpuscular Hemoglobin 32.2 pg (28.0-32.0); Mean Corpuscular Hgb Conc. 33.3 g/dL (32.0-36.0); Mean Corpuscular Volume 96.6 fL (80.0-100.0); Monocytes # (auto) 0.6 uL; Monocytes % (auto) 6.3 % (0.0-12.0); Neutrophils # (auto) 6.1 uL; Neutrophils % (auto) 68.6 % (37.0-80.0); Platelet Count (auto) 243 10^3/uL (140-450); Red Blood Cells 4.33 10^6/uL (4.0-5.20); Red Cell Distribution Width 13.2 % (11.8-14.3); White Blood Cell 8.8 10^3/uL (4.4-10.8)
[2018-08-01 15:55] LABS: Alanine Aminotransferase 23 U/L (13-56); Albumin 4.2 g/dL (3.4-5.0); Anion Gap 9 (5-15); Blood Urea Nitrogen 8 mg/dL (7-18); Carbon Dioxide 27 mmol/L (21-32); Chloride 102 mmol/L (98-107); Glucose 84 mg/dL (74-106); Magnesium 2.3 mg/dL (1.6-2.6); Sodium 138 mmol/L (136-145)
[2018-08-01 15:58] LABS: Alkaline Phosphatase 66 U/L (45-117); Aspartate Aminotransferase 22 U/L (15-37); BUN/Creatinine Ratio 9.5; Bilirubin, Total 1.2 mg/dL (0.2-1.0); Calcium 8.9 mg/dL (8.5-10.1); GFR African American 86 mL/min; GFR Non-African American 71 mL/min; Total Protein 7.3 g/dL (6.4-8.2)
[2018-08-01 17:11] VITALS: BP 132/70
== END 2018-08-01 17:42 | disposition home or self-care (01) ==
LOC: ER 13:20
DX: R07.89 Other chest pain (principal); M54.12 Radiculopathy, cervical region; E04.1 Nontoxic single thyroid nodule; M47.892 Other spondylosis, cervical region; E78.5 Hyperlipidemia, unspecified; Z79.899 Other long term (current) drug therapy; Z88.5 Allergy status to narcotic agent; Z90.710 Acquired absence of both cervix and uterus
CPT/HCPCS: 36415; 71046; 72125; 80053; 81001; 83735; 84484; 85025; 93005

== ENCOUNTER → 2019-01-07 | Outpatient (CLI) | payer MEDICARE, OTHER | END | disposition home or self-care (01) | LOC: Rad HDHVI 10:41 | PROVIDERS: ATTEND Internal Medicine Cardiovascular Disease | DX: I34.0 Nonrheumatic mitral (valve) insufficiency (principal); I44.7 Left bundle-branch block, unspecified | CPT/HCPCS: 93306 ==

== ENCOUNTER → 2019-01-24 | Outpatient (CLI) | payer MEDICARE, OTHER ==
[2019-01-24 12:14] LABS: Urine WBC None Seen /hpf (0 - 5)
[2019-01-24 12:33] LABS: Urine Bacteria NONE SEEN /hpf (None Seen); Urine Blood TRACE /uL (Negative); Urine Mucus FEW (None Seen); Urine Specific Gravity 1.005 (1.001-1.035)
[2019-01-24 12:36] LABS: Basophils # (auto) 0.1 uL; Eosinophils # (auto) 0.1 uL; Eosinophils % (auto) 2.5 % (0.0-7.0); Hematocrit 39.8 % (36.0-46.0); Hemoglobin 13.5 g/dL (12.2-16.2); Lymphocytes # (auto) 1.9 uL; Lymphocytes % (auto) 34.7 % (10.0-50.0); Mean Corpuscular Hemoglobin 32.5 pg (28.0-32.0); Mean Corpuscular Hgb Conc. 33.8 g/dL (32.0-36.0); Mean Corpuscular Volume 95.9 fL (80.0-100.0); Monocytes # (auto) 0.3 uL; Monocytes % (auto) 5.3 % (0.0-12.0); Neutrophils # (auto) 3.1 uL; Neutrophils % (auto) 56.5 % (37.0-80.0); Nucleated Red Blood Cells % 0.1 %; Platelet Count (auto) 218 10^3/uL (140-450); Red Blood Cells 4.15 10^6/uL (4.0-5.20); Red Cell Distribution Width 13.3 % (11.8-14.3); White Blood Cell 5.5 10^3/uL (4.4-10.8)
[2019-01-24 12:45] LABS: Albumin 3.8 g/dL (3.4-5.0); Potassium 4.1 mmol/L (3.5-5.1)
[2019-01-24 12:49] LABS: BUN/Creatinine Ratio 11.9; Bilirubin, Total 1.2 mg/dL (0.2-1.0); Total Protein 7.1 g/dL (6.4-8.2)
== END | disposition home or self-care (01) ==
LOC: LAB 11:36
PROVIDERS: ATTEND Internal Medicine
DX: E78.5 Hyperlipidemia, unspecified (principal); I10 Essential (primary) hypertension; E55.9 Vitamin D deficiency, unspecified
CPT/HCPCS: 36415; 80053; 80061; 81001; 82043; 82306; 84439; 84443; 85025; 85652

== ENCOUNTER → 2019-02-25 | Outpatient (CLI) | payer MEDICARE, OTHER ==
[~2019-02-25] VITALS: Ht 154.9 cm; Wt 70.3 kg
[~2019-02-25] MED LIST changes: +ADENOSINE 59 MG in GIVE UN-DILUTED 0 ML IV ONE; +ADENOSINE 90 MG/30 ML INJ IV ONE
== END | disposition home or self-care (01) ==
LOC: Rad HDHVI 09:44
PROVIDERS: ATTEND Internal Medicine Cardiovascular Disease
DX: Z01.810 Encounter for preprocedural cardiovascular examination (principal); E78.00 Pure hypercholesterolemia, unspecified; I44.7 Left bundle-branch block, unspecified
CPT/HCPCS: 78452; 93005; 96374; 96375; A9500; J0153

== ENCOUNTER → 2019-03-28 | Outpatient (CLI) | payer MEDICARE, OTHER ==
[~2019-03-28] MED LIST changes: -ADENOSINE 59 MG in GIVE UN-DILUTED 0 ML IV ONE; -ADENOSINE 90 MG/30 ML INJ IV ONE
[2019-03-28 08:18] VITALS: BP 123/68
[2019-03-28 08:35] VITALS: BP 128/70
--- NOTE | 2019-03-28 08:35 | NUR ---
PRE-OP FOR LEFT HEART CATH FOR 03/31/19. Discharge Instructions See e-MAR for any mediations given with this visit. Patient education given on disease process. Patient verbalized understanding. Previous labs reviewed. Patient discharged in stable condition with after care instructions.
[2019-03-28 12:46] LABS: Basophils # (auto) 0.1 uL; Basophils % (auto) 1.1 % (0.0-2.0); Eosinophils # (auto) 0.2 uL; Eosinophils % (auto) 2.8 % (0.0-7.0); Hematocrit 38.5 % (36.0-46.0); Hemoglobin 12.6 g/dL (12.2-16.2); Lymphocytes # (auto) 1.5 uL; Lymphocytes % (auto) 23.6 % (10.0-50.0); Mean Corpuscular Hemoglobin 32.2 pg (28.0-32.0); Mean Corpuscular Hgb Conc. 32.8 g/dL (32.0-36.0); Mean Corpuscular Volume 98.1 fL (80.0-100.0); Monocytes # (auto) 0.4 uL; Monocytes % (auto) 6.7 % (0.0-12.0); Neutrophils # (auto) 4.1 uL; Neutrophils % (auto) 65.8 % (37.0-80.0); Platelet Count (auto) 226 10^3/uL (140-450); Red Blood Cells 3.93 10^6/uL (4.0-5.20); Red Cell Distribution Width 13.1 % (11.8-14.3); White Blood Cell 6.3 10^3/uL (4.4-10.8)
[2019-03-28 13:01] LABS: INR 0.93 (0.9-1.15); Partial Thromboplastin Time 26.1 sec (23.78-33.04)
[2019-03-28 13:12] LABS: Calcium 8.9 mg/dL (8.5-10.1)
== END | disposition home or self-care (01) ==
LOC: Rad HDHVI 07:46
PROVIDERS: ATTEND Internal Medicine Cardiovascular Disease
DX: Z01.818 Encounter for other preprocedural examination (principal); I70.0 Atherosclerosis of aorta; D64.9 Anemia, unspecified; R79.1 Abnormal coagulation profile; I10 Essential (primary) hypertension
CPT/HCPCS: 36415; 71046; 80048; 85025; 85610; 85730; 93005; G0463

== ENCOUNTER 2019-03-31 07:20 | Day surgery (SDC) | payer MEDICARE, OTHER ==
[~2019-03-31] VITALS: Ht 154.9 cm; Wt 67.6 kg
[~2019-03-31 07:20] MED LIST changes: -CYCL0.05 EACHEYE; -LORA2TAB10 OR; -PANT40TA2 PO; -SUCR1SUS10 PO
[2019-03-31] MEDS ORDERED: SODIUM CHL 0.9% 0 ML ONE (07:34)
[2019-03-31] MEDS ORDERED: ANGIOMAX 250 MG VIAL IV ONE (07:34)
[2019-03-31] MEDS ORDERED: MIDAZOLAM HCL 1MG/1ML-2 ML VIAL ONE (07:34)
[2019-03-31] MEDS ORDERED: LIDOCAINE 2%HCL (LOCAL ANESTH.) INJ 20ML MDV ONE (07:34)
[2019-03-31] MEDS ORDERED: fentaNYL CITRATE 100 MCG/2 ML VL ONE (07:34)
[2019-03-31] MEDS ORDERED: IOHEXOL 350 MG/ML 100ML IJ ONE ×3 (07:35→07:45)
[2019-03-31] MEDS ORDERED: HYDROmorphone HCL 2 MG/ML VL ONE (09:07)
== END 2019-03-31 11:33 | disposition home or self-care (01) ==
LOC: CATH 07:20
PROVIDERS: ATTEND Internal Medicine Cardiovascular Disease
DX: I25.10 Atherosclerotic heart disease of native coronary artery without angina pectoris (principal); I10 Essential (primary) hypertension; E78.5 Hyperlipidemia, unspecified; F32.9 Major depressive disorder, single episode, unspecified; F41.9 Anxiety disorder, unspecified; E78.00 Pure hypercholesterolemia, unspecified; Z88.5 Allergy status to narcotic agent; Z88.8 Allergy status to other drugs, medicaments and biological substances; Z79.899 Other long term (current) drug therapy; Z82.49 Family history of ischemic heart disease and other diseases of the circulatory system; Z90.710 Acquired absence of both cervix and uterus; Z80.0 Family history of malignant neoplasm of digestive organs; Z98.890 Other specified postprocedural states
CPT/HCPCS: 93458; C1760; C1894; J1170; J1644; J2250; J3010; J7030; J7040; Q9967; 99152